=== PATIENT | male | born 1960 | race Caucasian/White ===

== ENCOUNTER 2025-04-30 05:57 | Day surgery (SDC) | payer OTHER ==
[2025-04-28 12:00] LABS: IMMATURE GRANULOCYTE ABSOLUTE 0.01 K/uL (0-1); NUCLEATED RED BLOOD CELLS 0.0 % (0.0-0.19); PLATELET COUNT (AUTO) 327 K/uL (130-400); RED BLOOD CELL COUNT(AUTO) 4.33 MIL/uL (4.50-6.20); RED CELL DISTRIBUTION WIDTH 13.5 % (11.0-15.5); WHITE BLOOD COUNT (AUTO) 8.1 K/uL (4.8-10.8)
[2025-04-28 12:02] VITALS: BP 129/65; PULSE 61; RESP 18; TEMP 97.6
[2025-04-28 12:13] LABS: CREATININE 1.2 mg/dL (0.5-1.3); GLOMERULAR FILTR. RATE CALC 68.0 mL/min (>90); GLUCOSE,RANDOM 100.0 mg/dL (70-105); INR 1.04 (0.85-1.15); SODIUM SERUM 137.0 mmol/L (136-145); UREA NITROGEN, BLOOD 16.0 mg/dL (7-18)
[2025-04-30] VITALS (14 sets, daily range): BP systolic 106–125; BP diastolic 53–82; PULSE 49–66; RESP 13–17; TEMP 97.3–97.8
[~2025-04-30] VITALS: Ht 185.4 cm; Wt 87.8 kg
[~2025-04-30 05:57] MED LIST: ACET-2079 PO; AMLO-257 PO; ASPI-1443 PO; ATOR40TA69 PO; DULO20CA18 PO; LISI10TA24 PO; MELA5CAP PO; MELO-108 PO; METH-812 PO; MIRT45TA79 PO
[2025-04-30] MEDS ORDERED: LACTATED RINGERS 1000ML 1,000 ML IV ONE (06:21)
[2025-04-30] MEDS ORDERED: FAMOTIDINE 20MG VIAL IV ONE (06:30)
[2025-04-30] MEDS ORDERED: GABAPENTIN 300 MG CAPSULE ONE (06:30)
[2025-04-30] MEDS ORDERED: LIDOCAINE PF 100MG/5ML (2%) SYRINGE 5ML ONE (06:47)
[2025-04-30] MEDS ORDERED: MIDAZOLAM HCL 1 MG/ML 2ML VIAL ONE (06:54)
[2025-04-30] MEDS ORDERED: HYDR-4068 PO (07:33)
[2025-04-30] MEDS ORDERED: METH-812 PO (07:33)
[2025-04-30] MEDS ORDERED: GABA-529 PO (07:33)
[2025-04-30] MEDS ORDERED: HYDR-3421 PO (07:33)
[2025-04-30] MEDS ORDERED: GLYCOPYRROLATE 0.2 MG/ML 5 ML VIAL ONE (08:10)
[2025-04-30] MEDS ORDERED: NEOSTIGMINE METHYLSULFATE 1MG/ML IV ONE (08:10)
--- NOTE | 2025-04-30 10:56 | OP ---
Operative Note: DATE OF PROCEDURE: 04/30/25 SURGEON: LENNOX MARTINEZ MD EAR NOSE AND THROAT SPECIALIST: Usman Arellano ANESTHESIA: General and interscalene block ANESTHESIOLOGIST/[employer]: Laura Bhardwaj PREOPERATIVE DIAGNOSIS: Right shoulder partial-thickness rotator cuff tear, subacromial impingement, acromioclavicular joint osteoarthritis POSTOPERATIVE DIAGNOSIS: Right shoulder partial-thickness rotator cuff tear, subacromial impingement, acromioclavicular joint osteoarthritis PROCEDURE: Right shoulder arthroscopic rotator cuff repair, distal clavicle excision, subacromial debridement ESTIMATED BLOOD LOSS: 10 cc FINDINGS: On insertion of the arthroscope into the joint we noted degenerative fraying of the labrum but a stable biceps attachment. There was a small grade 3 with focal grade 4 chondromalacia lesion on the humeral head. Biceps tendon appeared healthy exiting the rotator interval. Small partial-thickness tear of the supraspinatus adjacent to the long head of the biceps. Remainder of the rotator cuff appeared intact. Subscap appeared intact with healthy rotator interval adjacent. We placed a PDS suture marking the partial-thickness tear of the supraspinatus we debrided the labrum back to a stable leading edge we then repositioned the arthroscope into the subacromial space. Here we identified the rotator cuff partial-thickness tear for we performed completion of the tear using a cautery device and subsequent repair with white FiberTape. We identified the acromioclavicular joint with large spurs on each side. We identified the anterolateral edge of the acromion and inserted the bur device through the lateral portal for bony resection on the undersurface of the acromion resecting 2-3 mm of bone in addition to a lateral spurs. We then inserted the bur through the anterior portal and performed distal clavicle excision as well as debridement of the bone spurs along both the clavicle and acromion in this region.. INDICATIONS: 64-year-old male with a history of right shoulder pain. They were failing conservative management and found on MRI to have partial-thickness tearing of the supraspinatus with significant mass effect cause by degenerative changes of the acromioclavicular joint and lateral acromial spurs. After discussion of the risk, benefits, and alternatives, the patient voluntarily agreed to undergo the aforementioned procedure. DESCRIPTION OF PROCEDURE: Patient was properly identified in the preoperative holding area. Surgical site marking was verified and surgery consent reviewed. The patient was then taken to the operating room and placed in supine position on the OR table. After induction of general anesthesia, preoperative antibiotics were given, all bony prominences were well-padded as the patient was transitioned into beachchair position. The right upper extremity was then prepped and draped in usual sterile fashion. Surgical timeout was done verifying correct surgery, side, site, and location to be performed. We then began the procedure by using an 18-gauge spinal needle to inject the shoulder joint with normal saline to distend the joint capsule. A posterior lateral portal was established using 11 blade and we inserted our arthroscope through this portal. We established an anterior portal using needle localizat ion under direct visualization and placed a working cannula through this portal. We then performed a diagnostic arthroscopy with the aforementioned findings. We then evaluated the tearing of the labrum and noted this was just degenerative fraying. We debrided the labrum back to a stable leading edge. We placed a PDS suture through the 18 gauge spinal needle to chester the partial-thickness rotator cuff tear. We then repositioned the arthroscope into the subacromial space and established a lateral working portal. Here we performed subacromial decompression resecting bursal tissue with shaver and electrocautery device. We then identified the partial-thickness rotator cuff tear based on the location of our suture. On palpation this appeared to be a high-grade tear so we elected to complete the tear at the thinnest point for full-thickness repair. Using the scorpion suture passer device, we then passed a single FiberTape through the supraspinatus tendon in a mattress-type fashion. This was then secured to the bone using a SwiveLock anchor. We then inserted the bur through the lateral portal and performed resection of the lateral acromial spurs as well as debridement of 2-3 mm off the undersurface of the acromion. We resected this spurs located at the acromioclavicular joint. We then placed a bur through the anterior portal to perform our distal clavicle excision removing a proximally 8 mm of bone from the distal clavicle. Bony debris was removed using the suction from the shaver device. We then removed as much of the arthroscopic fluid as possible and removed the arthroscopic instruments and camera. We expressed some the remaining fluid from the surrounding soft tissues. 3-0 nylon was then used to close the skin portals. Sterile soft dressing was applied. Patient was then placed into a shoulder immobilizer, awakened from anesthesia, and taken the recovery room in stable condition. LENNOX MARTINEZ MD Apr 30, 2025 10:56
--- NOTE | 2025-04-30 11:49 | NUR ---
FULL AND COMPLETE DISCHARGE INSTRUCTIONS GIVEN TO PATIENT AND FAMILY BOTH VERBALLY AND IN WRITING. VOICED UNDERSTANDING TO SURGICAL FOLLOW UP EXPECTIONS AND PRECAUTIONS. PATIENT DENIES C/O PAIN OR NEED. SLING INTACT AND PATIENT REMAINS NEUROVASCULARLY INTACT. PIV REMOVED WITH CATHETER TIP INTACT. W/C TO POV WITH FAMILY TO HOME SCHEDULED.
== END 2025-04-30 11:50 | disposition home or self-care (01) ==
LOC: DAH 05:57
PROVIDERS: ATTEND Student in an Organized Health Care Education/Training Program
DX: M75.111 Incomplete rotator cuff tear or rupture of right shoulder, not specified as traumatic (principal); M19.90 Unspecified osteoarthritis, unspecified site; M25.811 Other specified joint disorders, right shoulder; M19.011 Primary osteoarthritis, right shoulder; I10 Essential (primary) hypertension; E78.5 Hyperlipidemia, unspecified; F43.10 Post-traumatic stress disorder, unspecified; F41.9 Anxiety disorder, unspecified; F32.A Depression, unspecified; Z79.01 Long term (current) use of anticoagulants; Z79.899 Other long term (current) drug therapy; Z98.890 Other specified postprocedural states; Z82.3 Family history of stroke; G89.18 Other acute postprocedural pain
CPT/HCPCS: 80048; 85025; 85610; 85730; 36415; 29827; 64415; 29826; 29824; A4663; J7030; C1713 ×2; J7120; J3490 ×6; J3010; J1100; J0169; J2003; J2250; J2704; J2405; J2710; J2795; J2371; J0690; A6223; A4930; A4649; A5120; A4215; A4213; A4222; A4221; A4216; A4450; A4223 ×2